=== PATIENT | female | born 2000 | race Caucasian/White ===

== ENCOUNTER 2023-03-10 22:40 | Emergency (ER) | payer OTHER, SELFPAY ==
--- NOTE | ~2023-03-10 | XR_ITS ---
EXAMINATION: XR chest 1V portable DATE: 03/10/2023 23:17 INDICATION: Dyspnea. TECHNIQUE: A single frontal view of the chest was obtained. COMPARISON: None. FINDINGS: There is no pneumonia, pleural effusion, or pneumothorax. The heart size is normal. IMPRESSION: 1. No acute cardiopulmonary disease. Reviewed, dictated and finalized at location E. OTIONS ASSOCIATE
--- NOTE | ~2023-03-10 | CT_ITS ---
Clinical Indication: Dyspnea CT Scan of the Chest with Contrast: Technique: Contiguous sections were acquired throughout the chest after intravenous administration of 100 cc of Omnipaque 350. Dose reduction technique was used on this scan by utilizing automated expos ure control and iterative reconstruction technique. The dose-length product (DLP) was 273.15 mGy-cm. Findings: There is no evidence of any significant mediastinal, hilar or axillary lymphadenopathy. There is no f illing defect in the pulmonary arterial tree to suggest pulmonary embolus. There is no evidence of ao rtic dissection or aneurysm. There is no evidence of pleural or pericardial effusion. The lungs are clear. No pulmonary nodules or infiltrates are noted. Images through the upper abdomen reveal no abnormalities. Impression: No evidence of pulmonary embolus, aortic dissection, or aortic aneurysm. Clear lungs. Reviewed, dictated and finalized at [facility]. GN ENGINEERING TECHNICIAN Impression: No evidence of pulmonary embolus, aortic dissection, or aortic aneurysm. Clear lungs.
--- NOTE | 2023-03-10 22:45 | ECG_ITS ---
Measurements Intervals [place] Rate: 169 P: [place]: 0 QRS: 98 QRSD: 81 T: 35 QT: 262 QTc: 439 Interpretive Statements SINUS TACHYCARDIA RIGHT AXIS DEVIATION MINIMAL Q WAVES- INFERIOR LEADS NONSPECIFIC ST & T-WAVE ABNORMALITY- INFERIOR LEADS BASELINE WANDER- V3 ABNORMAL ECG NO PREVIOUS ECG AVAILABLE FOR COMPARISON Electronically Signed On 03-11-2023 6:37:18 EDGE POLISHER by Alex Simpson D.O.
[2023-03-10 22:46] VITALS: BP 146/92; PULSE 180; RESP 16; O2SAT 100
[2023-03-10 22:59] VITALS: TEMP 37.1
[2023-03-10] MEDS: ADENOSINE IV SOLN 6 MG/2 ML VIAL IV PUSH (23:04)
[2023-03-10] MEDS: ADENOSINE IV SOLN 6 MG/2 ML VIAL 12 MG IV PUSH (23:07)
[2023-03-10 23:09] VITALS: PULSE 179; O2SAT 100
[2023-03-10 23:11] VITALS: PULSE 132; RESP 16; O2SAT 100
[2023-03-10 23:15] VITALS: PULSE 128; RESP 14; O2SAT 100
[2023-03-10] MEDS: SODIUM CHLORIDE 0.9% IV 1,000 ML 999 ML IV CONT (23:15)
[2023-03-10] MEDS: SODIUM CHLORIDE 0.9% IV 1,000 ML 999 ML (23:16)
[2023-03-10 23:18] LABS: Basophils Percent Auto 0.2 % (0.2-1.2); Hematocrit 44.3 % (37.0-47.0); Hemoglobin 14.9 g/dL (12.0-15.0); Immature Granulocyte Absolute 0.08 K/mm3 (0.00-0.031); Immature Granulocyte Percent A 0.5 % (0-0.5); Lymphocytes Absolute Auto 2.36 K/mm3 (0.9-3.2); Lymphocytes Percent Auto 15.6 % (18.3-44.2); Mean Corpuscular HGB Conc 33.6 g/dl (32-36); Mean Corpuscular Hemoglobin 30.3 pg (26-34); Mean Corpuscular Volume 90.2 fl (80-100); Mean Platelet Volume 11.3 fl (7.4-10.4); Monocytes Absolute Auto 0.4 K/mm3 (0.1-0.6); Monocytes Percent Auto 2.8 % (2.6-8.5); Neutrophils Absolute Auto 12.2 K/mm3 (1.3-6.7); Neutrophils Percent Auto 80.9 % (45.5-73.1); Platelet Count Result 304 k/mm3 (150-375); Red Blood Count 4.91 M/mm3 (4.2-5.4); Red Cell Distribution Width 12.4 % (11.5-14.5); White Blood Count 15.1 K/mm3 (4.5-10.0)
[2023-03-10 23:29] LABS: Alanine Aminotransferase 54 U/L (6-35); Albumin Level 4.7 g/dL (3.5-5.1); Alkaline Phosphatase 74 U/L (38-126); Anion Gap 14 mmol/L (8-16); Aspartate Amino Transferase 28 U/L (14-36); Bilirubin,Total 0.8 mg/dL (0.2-1.3); Blood Urea Nitrogen 10 mg/dL (7-17); Calcium 10.2 mg/dL (8.4-10.2); Carbon Dioxide 18 mmol/L (22-30); Chloride 107 mmol/L (98-107); Estimated CRCL calculation 99 ml/min; Estimated Glomerular Filt Rate > 60; Glucose 145 mg/dL (65-110); Magnesium 2.1 mg/dL (1.6-2.3); Potassium 3.6 mmol/L (3.4-5.0); Sodium 139 mmol/L (137-145)
[2023-03-10 23:29] LABS: INR 0.9
[2023-03-10 23:30] LABS: Partial Thromboplastin Time 28.6 SECONDS (22.3-36.8)
[2023-03-10 23:34] LABS: Lactic Acid Reflex 4.1 mmol/L (0.7-2.0)
[2023-03-10 23:40] LABS: Troponin I < 0.012 ng/mL (0.000-0.034)
[2023-03-11] VITALS (18 sets, daily range): BP systolic 111–131; BP diastolic 56–83; PULSE 86–115; RESP 12–26; O2SAT 96–100
[2023-03-11 00:09] LABS: Influenza A QL RT-PCR Negative (Negative); Influenza B QL RT-PCR Negative (Negative); RSV RNA, RT-PCR Negative (Negative); SARS-CoV-2 RNA PCR Negative (Negative)
[2023-03-11 01:13] LABS: Appearance Urine Clear (Clear); Bacteria Urine None Seen /hpf; Bilirubin Urine Negative (Negative); Blood Urine Negative (Negative); Color Urine Yellow (Yellow); Glucose Urine UA Negative (Negative); Ketones Urine Negative (Negative); Leukocyte Esterase Ur Trace LEU/UL (Negative); Need Manual Microscopic Reviewed; Nitrate Urine Negative (Negative); Non Pathogenic Casts 0-2; Protein Urine Negative (Negative); RBC Urine 0-2 /hpf (0-2); Specific Grav Ur 1.002 (1.001-1.035); Squamous Epithelial Cell Urine Occasional /hpf (Few); Urobilinogen Urine 0.2 mg/dL (<2.0); WBC Urine 0-5 /hpf
[2023-03-11 01:22] LABS: Add Urine Microscopic? YES
[2023-03-11] MEDS: SODIUM CHLORIDE 0.9% IV 1,000 ML 999 ML IV CONT (02:02)
[2023-03-11] MEDS: ACETAMINOPHEN 500 MG TABLET 1000 MG PO (02:03)
[2023-03-11 02:16] LABS: Reflex Lactic Acid Yes or No Add Lactic
--- NOTE | 2023-03-11 02:43 | ED.GENADULT ---
HPI - General Adult General Chief complaint: Chest Pain Stated complaint: palpitations Time Seen by Provider: 03/10/23 22:53 History of Present Illness HPI narrative: patient with 3-year-old female presents emergency department with chief complaint of palpitations and not feeling well. Patient reports that she has had a viral-like syndrome since [place] reports he has not been eating and drinking well. The patient has had a cough and was told that she was having some bad sounds in her lungs and she was evaluated at [facility]. Patient reports that this evening she started feeling as though her heart was beating very fast does report that she has had a prior episode of supraventricular tachycardia when she was younger. The patient states she feels extremely tired and upon initial presentation had a heart rate of 180 Related Data Allergies Allergy/AdvReac Type Severity Reaction Status Date / Time No Known Allergies Allergy Verified 03/10/23 22:59 Review of Systems Review of Systems: A 10 system review of systems was completed on the patient and is negative except for what is stated in the HPI. Nursing and ancillary documentation was reviewed. Exam Narrative: GENERAL: Well-appearing, well-nourished, and in no acute distress. HEAD: Normocephalic, atraumatic. EYES: PERRLA and EOMI. ENT: Nares clear, no rhinorrhea or epistaxis. Mucous membranes moist. NECK: Supple. CHEST: Clear to auscultation. No respiratory distress. HEART: tachycardic rate and rhythm. No murmur heard. Normal peripheral pulses. ABDOMEN: Soft, nontender, nondistended, normal active bowel sounds. EXTREMITIES: Normal range of motion. No edema. SKIN: Warm, dry, no rash. NEURO: No focal deficits. Alert and oriented x3. PSYCH: Normal mood and affect. Course Vital Signs Vital signs: Vital Signs Pulse Rate 180 H 03/10/23 22:46 Respiratory Rate 16 03/10/23 22:46 Blood Pressure 146/92 H 03/10/23 22:46 Pulse Oximetry 100 03/10/23 22:46 Oxygen Delivery Room Air 03/10/23 22:46 Temperature 37.1 C 03/10/23 22:59 Pulse Rate 89 03/11/23 02:45 Respiratory Rate 20 03/11/23 02:45 Blood Pressure 113/56 L 03/11/23 03:00 Pulse Oximetry 97 03/11/23 02:45 Oxygen Delivery Room Air 03/10/23 22:46 Oxygen Flow Rate 2 03/10/23 23:09 Medical Decision Making [facility] Narrative Medical decision making narrative: differential diagnosis includes infection, pneumonia, viral syndrome, SVT, dehydration initial EKG showed supraventricular tachycardia with a rate of 169 patient was having episodes of her heart rate increasing to 180 neuro complex rhythm. The patient had a stable blood pressure at this time. The decision was made for chemical cardioversion the patient is given 60 mg dose of adenosine which did not significantly slow the patient's heart rate. The patient was given a 12 mg dose of adenosine as well as normal saline boluses and the patient's heart rate gradually slowed down and has currently decreased to 89 laboratory studies were obtained on the patient showed white count 15.1 hemoglobin is 14.9 acute electrolytes within normal limits CO2 was 18 glucose is 145 troponin was less than 0.012 procalcitonin 0.0 urinalysis showed no evidence UTI flu RSV and COVID were negative the patient did have a elevated lactate 4.1 this has been repeated and has normalized. Vital Signs Vital Signs: Vital Signs Pulse Rate 180 H 03/10/23 22:46 Respiratory Rate 16 03/10/23 22:46 Blood Pressure 146/92 H 03/10/23 22:46 Pulse Oximetry 100 03/10/23 22:46 Oxygen Delivery Room Air 03/10/23 22:46 Temperature 37.1 C 03/10/23 22:59 Pulse Rate 89 03/11/23 02:45 Respiratory Rate 20 03/11/23 02:45 Blood Pressure 113/56 L 03/11/23 03:00 Pulse Oximetry 97 03/11/23 02:45 Oxygen Delivery Room Air 03/10/23 22:46 Oxygen Flow Rate 2 03/10/23 23:09 Lab Data 03/10/23 23:07
== END 2023-03-11 03:50 | disposition home or self-care (01) ==
PROVIDERS: Emergency Provider Emergency Medicine
DX: I47.10 Supraventricular tachycardia, unspecified (principal); Z20.822 Contact with and (suspected) exposure to COVID-19
CPT/HCPCS: 36415; 71045; 71275; 80053; 81001; 81025; 83605; 83735; 84145; 84484; 85025; 85610; 85730; 87040; 87637; 93005; 96361; 96374; 99284; A9270; J0153; J7030; Q9967

== ENCOUNTER 2023-03-25 04:33 | Emergency (ER) | payer OTHER, SELFPAY ==
--- NOTE | ~2023-03-25 | XR_ITS ---
Portable chest x-ray Comparison: 03/10/2023 Clinical History: Palpitations Findings: Lungs are clear, without focal consolidation or pleural effusion. Cardiomediastinal silho uette is stable. Bones and soft tissues are unremarkable. Impression: Clear lungs. Reviewed, dictated and finalized at [facility]. CTOR AUDIENCE MARKETING Impression: Clear lungs.
[2023-03-25 04:37] VITALS: BP 148/88; PULSE 148; RESP 18; TEMP 36.4; O2SAT 98
--- NOTE | 2023-03-25 04:52 | ECG_ITS ---
Measurements Intervals [place] Rate: 149 P: 76 RI: 138 QRS: 118 QRSD: 78 T: 45 QT: 278 QTc: 439 Interpretive Statements SINUS TACHYCARDIA COMPARED TO ECG 03/10/2023 22:58:11 NO SIGNIFICANT CHANGES Electronically Signed On 03-25-2023 11:24:32 BRANCH GENERAL MANAGER by Caio Pearl M.D.
--- NOTE | 2023-03-25 04:58 | ECG_ITS ---
Measurements Intervals [place] Rate: 107 P: 62 [place]: 158 QRS: 88 QRSD: 79 T: 25 QT: 309 QTc: 414 Interpretive Statements SINUS TACHYCARDIA COMPARED TO ECG 03/25/2023 04:44:32 HEART RATE IS SLOWER NOW Electronically Signed On 03-25-2023 11:24:56 PAPER SUPERVISOR by Caio Pearl M.D.
[2023-03-25 05:01] VITALS: PULSE 114
[2023-03-25 05:09] LABS: Basophils Absolute Auto 0.1 K/mm3 (0.0-0.1); Basophils Percent Auto 0.5 % (0.2-1.2); Eosinophils Absolute Auto 0.3 K/mm3 (0-0.3); Hematocrit 42.9 % (37.0-47.0); Hemoglobin 14.5 g/dL (12.0-15.0); Immature Granulocyte Absolute 0.06 K/mm3 (0.00-0.031); Immature Granulocyte Percent A 0.5 % (0-0.5); Lymphocytes Absolute Auto 4.41 K/mm3 (0.9-3.2); Lymphocytes Percent Auto 34.4 % (18.3-44.2); Mean Corpuscular HGB Conc 33.8 g/dl (32-36); Mean Corpuscular Hemoglobin 30.7 pg (26-34); Mean Corpuscular Volume 90.7 fl (80-100); Mean Platelet Volume 10.9 fl (7.4-10.4); Monocytes Absolute Auto 0.7 K/mm3 (0.1-0.6); Monocytes Percent Auto 5.3 % (2.6-8.5); Neutrophils Absolute Auto 7.3 K/mm3 (1.3-6.7); Neutrophils Percent Auto 57.3 % (45.5-73.1); Platelet Count Result 286 k/mm3 (150-375); Red Blood Count 4.73 M/mm3 (4.2-5.4); Red Cell Distribution Width 12.7 % (11.5-14.5); White Blood Count 12.8 K/mm3 (4.5-10.0)
[2023-03-25 05:15] LABS: Alanine Aminotransferase 41 U/L (6-35); Albumin Level 4.3 g/dL (3.5-5.1); Alkaline Phosphatase 75 U/L (38-126); Anion Gap 8 mmol/L (8-16); Aspartate Amino Transferase 27 U/L (14-36); Bilirubin,Total 0.9 mg/dL (0.2-1.3); Blood Urea Nitrogen 11 mg/dL (7-17); Calcium 9.6 mg/dL (8.4-10.2); Carbon Dioxide 21 mmol/L (22-30); Chloride 109 mmol/L (98-107); Estimated CRCL calculation 97 ml/min; Estimated Glomerular Filt Rate > 60; Glucose 107 mg/dL (65-110); Lipase 139 U/L (23-300); Potassium 3.6 mmol/L (3.4-5.0); Sodium 138 mmol/L (137-145)
[2023-03-25 05:23] LABS: INR 0.9; Prothrombin Time 12.8 Seconds (11.1-14.7)
[2023-03-25 05:24] LABS: Partial Thromboplastin Time 26.3 SECONDS (22.3-36.8)
[2023-03-25 05:28] LABS: Troponin I < 0.012 ng/mL (0.000-0.034)
[2023-03-25 05:29] LABS: Appearance Urine Cloudy (Clear); Bacteria Urine 3+ /hpf; Bilirubin Urine Negative (Negative); Blood Urine Negative (Negative); Color Urine Dark Yellow (Yellow); Glucose Urine UA Negative (Negative); Ketones Urine Trace mg/dL (Negative); Leukocyte Esterase Ur Negative LEU/UL (Negative); Nitrate Urine Negative (Negative); Non Pathogenic Casts 0-2; Protein Urine Negative (Negative); RBC Urine 0-2 /hpf (0-2); Specific Grav Ur 1.027 (1.001-1.035); Squamous Epithelial Cell Urine Many /hpf (Few); WBC Urine 0-5 /hpf; pH Urine 5.5 (5.0-9.0)
[2023-03-25 05:41] LABS: Add Urine Microscopic? YES
[2023-03-25 05:43] LABS: Amphetamine Screen Urine Negative (Negative); Barbiturate Screen Urine Negative (Negative); Benzodiazepines Screen Urine Negative (Negative); Cannabinoid Screen Urine Negative (Negative); Cocaine Screen Urine Negative (Negative); Methadone Screen Urine Negative (Negative); Opiate Screen Urine Negative (Negative); Phencyclidine Screen Urine Negative (Negative)
[2023-03-25 06:04] LABS: Pregnancy On Board Control Positive; Urine Pregnancy Test Negative
--- NOTE | 2023-03-25 06:26 | ED.GENADULT ---
HPI - General Adult General Chief complaint: Arrhythmia/Palpitations <Raafel Hall MD - Last Filed: 03/25/23 06:28> Stated complaint: high heart rate <Rafael Hall MD - Last Filed: 03/25/23 06:28> Time Seen by Provider: 03/25/23 04:39 <Rafael Hall MD - Last Filed: 03/25/23 06:28> History of Present Illness HPI narrative: patient is a 23-year-old female who presents emergency department with chief complaint of tachycardia. The patient reports that she has had an episode of SVT before the past is currently undergoing a monitor and also is to do a calcium channel berna next week. Patient reports that she woke up and felt extremely weak and felt as though she was going to fall over and her heart rate was very fast. <Rafael Hall MD - Last Filed: 03/25/23 06:28> Related Data Allergies/adverse reactions: Allergies Allergy/AdvReac Type Severity Reaction Status Date / Time No Known Allergies Allergy Verified 03/25/23 04:41 <Rafael Hall MD - Last Filed: 03/25/23 06:28> Review of Systems Review of Systems: A 10 system review of systems was completed on the patient and is negative except for what is stated in the HPI. Nursing and ancillary documentation was reviewed. <Rafael Hall MD - Last Filed: 03/25/23 06:28> Exam Narrative: GENERAL: Well-appearing, well-nourished, and in no acute distress. HEAD: Normocephalic, atraumatic. EYES: PERRLA and EOMI. ENT: Nares clear, no rhinorrhea or epistaxis. Mucous membranes moist. NECK: Supple. CHEST: Clear to auscultation. No respiratory distress. HEART: Regular rate and rhythm. No murmur heard. Normal peripheral pulses. ABDOMEN: Soft, nontender, nondistended, normal active bowel sounds. EXTREMITIES: Normal range of motion. No edema. SKIN: Warm, dry, no rash. NEURO: No focal deficits. Alert and oriented x3. PSYCH: Normal mood and affect. <Rafael Hall MD - Last Filed: 03/25/23 06:28> Course Vital Signs Vital signs: Vital Signs Temperature 97.6 F 03/25/23 04:37 Pulse Rate 148 H 03/25/23 04:37 Respiratory Rate 18 03/25/23 04:37 Blood Pressure 148/88 H 03/25/23 04:37 Pulse Oximetry 98 03/25/23 04:37 Oxygen Delivery Room Air 03/25/23 04:37 Temperature 98.0 F 03/25/23 08:00 Pulse Rate 78 03/25/23 08:00 Respiratory Rate 16 03/25/23 08:00 Blood Pressure 119/71 03/25/23 08:00 Pulse Oximetry 100 03/25/23 08:00 Oxygen Delivery Room Air 03/25/23 04:37 <Rafael Hall MD - Last Filed: 03/25/23 06:28> Vital Signs Temperature 97.6 F 03/25/23 04:37 Pulse Rate 148 H 03/25/23 04:37 Respiratory Rate 18 03/25/23 04:37 Blood Pressure 148/88 H 03/25/23 04:37 Pulse Oximetry 98 03/25/23 04:37 Oxygen Delivery Room Air 03/25/23 04:37 Temperature 98.0 F 03/25/23 08:00 Pulse Rate 78 03/25/23 08:00 Respiratory Rate 16 03/25/23 08:00 Blood Pressure 119/71 03/25/23 08:00 Pulse Oximetry 100 03/25/23 08:00 Oxygen Delivery Room Air 03/25/23 04:37 <Martha Wang MD - Last Filed: 03/25/23 09:15> Medical Decision Making MDM Narrative Medical decision making narrative: Patient signed out to me by night physician pending 2nd troponin. Repeat EKG revealed sinus tachycardia rate of 107. Patient is currently resting comfortably with current heart rate 87 beats per minute. Patient sees Dr. Simpson with cardiology and is currently being worked up for SVT's. Currently wearing a Holter monitor and was informed by her timber management technician that she most likely will be started on Cardizem next week. 2nd troponin was obtained and noted to be negative. Patient was discharged in stable condition with cardiology follow-up within the next 2-3 days. She was instructed to return to emergency department if any new or worsening symptoms develop. <Martha Wang MD - Last Filed:
[2023-03-25 06:37] VITALS: BP 114/74; BP 129/72; PULSE 100; PULSE 87
[2023-03-25 06:39] VITALS: BP 142/87; PULSE 105
[2023-03-25] MEDS: SODIUM CHLORIDE 0.9% IV 1,000 ML 999 ML IV CONT (06:52)
[2023-03-25 07:00] VITALS: BP 118/70; PULSE 78; RESP 16; TEMP 36.6; O2SAT 100
[2023-03-25 08:00] VITALS: BP 119/71; PULSE 78; RESP 16; TEMP 36.7; O2SAT 100
[2023-03-25 08:10] LABS: Troponin I < 0.012 ng/mL (0.000-0.034)
== END 2023-03-25 08:52 | disposition home or self-care (01) ==
PROVIDERS: Emergency Medicine; Emergency Provider Emergency Medicine; PCP Emergency Medicine
DX: R00.2 Palpitations (principal); I47.10 Supraventricular tachycardia, unspecified
CPT/HCPCS: 36415; 71045; 80053; 80307; 81001; 81025; 83690; 84484; 85025; 85610; 85730; 93005; 96360; 99284; J7030

== ENCOUNTER 2023-07-11 21:46 | Emergency (ER) | payer OTHER, MEDICAID, SELFPAY ==
[2023-07-11] VITALS (14 sets, daily range): BP systolic 109–133; BP diastolic 59–89; PULSE 68–114; RESP 13–20; TEMP 36.6; O2SAT 96–100
--- NOTE | ~2023-07-11 | XR_ITS ---
EXAMINATION: XR chest 2V DATE: 07/11/2023 22:24 INDICATION: Shortness of breath. TECHNIQUE: Frontal and lateral views of the chest were obtained. 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 No pleural effusion or pneumothorax. The heart size is normal. IMPRESSION: 1. No acute cardiopulmonary disease. Reviewed, dictated and finalized at location E.
--- NOTE | 2023-07-11 21:48 | ECG_ITS ---
SEE SCANNED COPY FOR CONFIRMED REPORT MTDD
[2023-07-11 22:15] LABS: Basophils Percent Auto 0.4 % (0.2-1.2); Eosinophils Absolute Auto 0.1 K/mm3 (0-0.3); Eosinophils Percent Auto 1.1 % (0-4.4); Hematocrit 43.7 % (37.0-47.0); Hemoglobin 14.9 g/dL (12.0-15.0); Immature Granulocyte Absolute 0.02 K/mm3 (0.00-0.031); Immature Granulocyte Percent A 0.2 % (0-0.5); Lymphocytes Percent Auto 39.7 % (18.3-44.2); Mean Corpuscular HGB Conc 34.1 g/dl (32-36); Mean Corpuscular Hemoglobin 30.7 pg (26-34); Mean Corpuscular Volume 89.9 fl (80-100); Mean Platelet Volume 10.8 fl (7.4-10.4); Monocytes Absolute Auto 0.4 K/mm3 (0.1-0.6); Monocytes Percent Auto 4.3 % (2.6-8.5); Neutrophils Absolute Auto 5.6 K/mm3 (1.3-6.7); Neutrophils Percent Auto 54.3 % (45.5-73.1); Platelet Count Result 253 k/mm3 (150-375); Red Blood Count 4.86 M/mm3 (4.2-5.4); Red Cell Distribution Width 11.8 % (11.5-14.5); White Blood Count 10.3 K/mm3 (4.5-10.0)
[2023-07-11 22:25] LABS: Alanine Aminotransferase 17 U/L (6-35); Albumin Level 4.6 g/dL (3.5-5.1); Alkaline Phosphatase 69 U/L (38-126); Anion Gap 9 mmol/L (4-12); Aspartate Amino Transferase 19 U/L (14-36); Bilirubin,Total 1.1 mg/dL (0.2-1.3); Blood Urea Nitrogen 15 mg/dL (7-17); Calcium 9.8 mg/dL (8.4-10.2); Carbon Dioxide 20 mmol/L (22-30); Chloride 108 mmol/L (98-107); Estimated CRCL calculation 76 ml/min; Estimated Glomerular Filt Rate > 60; Glucose 89 mg/dL (65-110); Potassium 3.6 mmol/L (3.4-5.0); Sodium 137 mmol/L (137-145)
--- NOTE | 2023-07-11 22:45 | ED.SOB ---
HPI - SOB/Dyspnea General Chief Complaint: Shortness of Breath/Dyspnea Stated Complaint: trouble breathing, coughing, wheezing, pain L ches Time Seen by Provider: 07/11/23 22:03 Source: patient Mode of arrival: ambulatory Limitations: no limitations History of Present Illness HPI Narrative: Patient is a 23-year-old female who presents the ED with report of shortness of breath. Patient reports over the last 6 months since having a respiratory illness in January, she has had intermittent episodes of shortness of breath. Has had a persistent dry cough with intermittent production of thick green sputum. Patient showed me a picture of this. She has seen her commercial real estate paralegal for this and had pulmonary function testing, which reportedly showed an obstructive pattern. Patient has inhaler that she has been using at home, but denies improvement of this. Tonight, she woke up from her sleep increase shortness of breath, feeling as though her left lung was not inflating with air. She then prompted here. Patient denies current chest pain, fevers, nausea, vomiting, lower extremity pain or swelling. Related Data Allergies Allergy/AdvReac Type Severity Reaction Status Date / Time No Known Allergies Allergy Verified 07/11/23 22:07 Review of Systems Review of Systems: CONSTITUTIONAL: Denies fever, chills, or sweats. CARDIOVASCULAR: See HPI. RESPIRATORY: See HPI. GASTROINTESTINAL: Denies abdominal pain, nausea, vomiting All systems reviewed & are unremarkable except as noted in HPI and below PMFSH Past Medical History Medical History (Updated 07/12/23 @ 01:06 by Gabby Jiménez PA-C) History of PSVT (paroxysmal supraventricular tachycardia) Exam Narrative: GENERAL: Anxious appearing, well-nourished, non-toxic, in no acute distress. HEAD: Normocephalic, atraumatic. RESPIRATORY: Airway patent, respirations nonlabored. Clear to auscultation bilaterally, no rales, rhonchi, wheezing. No focal lung sounds. No stridor distress. CARDIOVASCULAR: Regular rate and rhythm without murmurs, rubs, or gallops. MUSCULOSKELETAL: Moves all extremities. No gross deformities. No lower extremity edema. No calf tenderness. SKIN: Warm, dry, normal color. NEURO: A&O X3. Speech clear. Cranial nerves II-XII grossly intact. Steady gait. No ataxic movements. PSYCHIATRIC: Anxious. Normal interaction. Course Vital Signs Vital signs: Vital Signs Temperature 97.9 F 07/11/23 21:59 Pulse Rate 114 H 07/11/23 21:59 Respiratory Rate 20 07/11/23 21:59 Blood Pressure 133/89 07/11/23 21:59 Pulse Oximetry 100 07/11/23 21:59 Oxygen Delivery Room Air 07/11/23 21:59 Temperature 97.9 F 07/11/23 21:59 Pulse Rate 86 07/12/23 00:00 Respiratory Rate 15 07/12/23 00:00 Blood Pressure 106/72 07/12/23 00:00 Pulse Oximetry 97 07/12/23 00:53 Oxygen Delivery Room Air 07/11/23 22:05 MDM - SOB/Dyspnea MDM Narrative Medical decision making narrative: Patient presented to ED with intermittent shortness of breath, persistent cough x6 months. Woke up with episode of increased shortness of breath tonight. Patient mildly tachycardic upon arrival, vitals are otherwise stable. She does appear mildly anxious. Oxygen stable on room air, never dropping below 97% on room air. Chest x-ray interpreted by myself without acute focal findings. Appears consistent with previous records. CBC with white blood cell count of 10.3. Basic laboratory studies are otherwise unremarkable. EKG with sinus tachycardia, no ischemic changes. Troponin undetectable. BNP within normal limits. D-dimer within normal limits. No evidence of DVT on exam. Patient was ambulated throughout the ED with pulse oximeter and never dropped below 97%. Feel she is safe for discharge home at this time, no other concerning features. Will refer to pulmonology as patient requested. Discussed possibility of prolonged viral cough, long hauler COVID-type picture. Dis
[2023-07-11 23:06] LABS: D Dimer < 0.27 ug/mL (<0.48)
[2023-07-12] VITALS: BP 106/72; PULSE 86; RESP 15; O2SAT 100
[2023-07-12 00:01] VITALS: O2SAT 100
--- NOTE | 2023-07-12 00:05 | PC.NURSE ---
Patient requesting to be discharged. ERP notified.
--- NOTE | 2023-07-12 00:31 | PC.NURSE ---
Patient ambulated with steady gait with pulse ox 98%-100%. ERP notified.
[2023-07-12 00:45] LABS: Magnesium 2.1 mg/dL (1.6-2.3)
[2023-07-12 00:53] VITALS: O2SAT 97
[2023-07-12 00:58] LABS: NT Pro B Type Natriuretic Pept < 20 pg/mL (19.9-100); Troponin I < 0.012 ng/mL (0.000-0.034)
== END 2023-07-12 01:04 | disposition home or self-care (01) ==
PROVIDERS: Student in an Organized Health Care Education/Training Program; Emergency Provider Physician Assistant; PCP Emergency Medicine
DX: R06.02 Shortness of breath (principal); R05.3 Chronic cough; R00.0 Tachycardia, unspecified
CPT/HCPCS: 36415; 71046; 80053; 83735; 83880; 84484; 85025; 85380; 93005; 99284